=== PATIENT | female | born 1975 | race African-American/Black ===

== ENCOUNTER 2019-05-27 11:21 | Emergency (ER) | payer OTHER ==
[~2019-05-27] VITALS: Ht 172.7 cm; Wt 73.0 kg
[2019-05-27 12:26] LABS: BASOPHILS % 0.4 % (0.0-2.0); EOSINOPHILS % 2.3 % (0.0-5.0); HEMATOCRIT. 39.4 % (36.0-48.0); HEMOGLOBIN. 12.9 g/dL (12.0-16.0); LYMPHOCYTES % 16.8 % (20.0-50.0); MEAN CORPUSCULAR HEMOGLOBIN 25.4 pg (28.0-32.0); MEAN CORPUSCULAR VOLUME 77.5 fL (81.0-99.0); MEAN PLATELET VOLUME 8.2 fl (7.4-10.4); MONOCYTES % 9.2 % (2.0-8.0); NEUTROPHILS % 71.3 % (40.0-76.0); PLATELET 279 x1000/uL (130-400); RED BLOOD CELL COUNT 5.08 mill/uL (4.2-5.4); RED CELL DISTRIBUTION WIDTH 15.1 % (11.6-14.6)
[2019-05-27 12:28] LABS: CHLORIDE 103 mEq/L (98-107)
[2019-05-27 12:50] LABS: PROTHROMBIN TIME 10.7 sec (9.6-11.0)
[2019-05-27 13:26] VITALS: BP 106/71
== END 2019-05-27 13:30 | disposition home or self-care (01) ==
LOC: ER 11:48
DX: R05 Cough (principal); R63.4 Abnormal weight loss; Z68.24 Body mass index [BMI] 24.0-24.9, adult
CPT/HCPCS: 36415; 71046; 80048; 81025; 84443; 99284